=== PATIENT | male | born 1960 | race Caucasian/White ===

== ENCOUNTER 2022-02-07 10:18 | Day surgery (SDC) | payer BC ==
[2022-02-06 16:32] LABS: SARS-CoV-2 Antigen Rapid Res Negative (Negative)
[2022-02-07] MEDS ORDERED: Ringers Lactate 1,000 ML IV ONE (10:37)
[2022-02-07] MEDS ORDERED: CEFAZOLIN 2 GM IN 0.9% NACL 2 GM/100 ML BAG ONE (10:37)
[2022-02-07] MEDS ORDERED: DIAZEPAM 5 MG TABLET ONE (12:03)
[2022-02-07] MEDS ORDERED: CELECOXIB 100 MG CAPSULE ONE (12:03)
[2022-02-07] MEDS ORDERED: ACETAMINOPHEN 500 MG TAB ONE (12:04)
[2022-02-07] MEDS ORDERED: propofoL 200 MG/20 ML VIAL IV ONE (12:24)
[2022-02-07] MEDS ORDERED: MIDAZOLAM HCL 2 MG/2 ML INJ ONE (12:24)
[2022-02-07] MEDS ORDERED: LIDOCAINE 1% MPF 5 ML VIAL ONE (12:24)
[2022-02-07] MEDS ORDERED: FENTANYL CITR 100 MCG/2 ML ONE ×2 (12:24→13:03)
[2022-02-07] MEDS ORDERED: BUPIVACAINE 0.25% PF 30 ML VIAL ONE (12:29)
[2022-02-07] MEDS ORDERED: KETOROLAC 30 MG/ML INJ ONE (13:01)
[2022-02-07] MEDS ORDERED: dexAMETHasone 10 MG/ML VIAL ONE (13:01)
[2022-02-07] MEDS ORDERED: ONDANSETRON 4 MG/2 ML VIAL ONE (13:02)
[2022-02-07] MEDS ORDERED: SODIUM HYPOCHLORITE 0.25% 473 ML ONE (13:22)
--- NOTE | 2022-02-07 13:33 | P.OP ---
Preoperative diagnosis: Upper Back infected sebaceous cyst, buttock cysts x 2 Postoperative diagnosis: Upper Back infected sebaceous cyst, buttock cysts x 2 Primary procedure: Wide local excision of upper back infected sebaceous cyst Secondary procedure: Wide local excision of buttock cysts x 2 Anesthesia: GETA + Local Estimated blood loss: <5cc Specimen: back cyst, buttock cysts - taken together Findings: ~3cm x 2cm back cyst to fascia over muscle, buttock cysts into adipose Complications: None Transferred to: Recovery Room Condition: Good
[2022-02-07] MEDS: MORPHINE 4 MG/ML SYR ONE ×3 (13:51→13:57)
[2022-02-07] MEDS ORDERED: MORPHINE 4 MG/ML SYR ONE (14:14)
[2022-02-07 15:09] VITALS: BP 144/99; TEMP 97.3; O2SAT 98
--- NOTE | 2022-02-07 23:02 | OP ---
Date of Procedure: 02/07/2022 Surgeon: Al Daugherty MD, Preoperative Diagnoses: 1.Upper back infected sebaceous cyst. 2.Buttock cyst x2 on the right buttock. Postoperative Diagnoses: 1.Upper back infected sebaceous cyst. 2.Buttock cyst x2 on the right buttock. Procedures Performed: 1.Wide local excision of upper back infected sebaceous cyst. 2.Wide local excision of buttock cyst as described above x2. Anesthesia: General endotracheal plus local with 0.5% Marcaine with epinephrine. Estimated Blood Loss: 5 cc. Specimens: 1.Back cyst. 2.Buttock cysts taken en bloc together. Findings: 1.Approximately 3 cm x 2 cm back cyst extending to the fascia overlying the muscle. 2.Buttock cysts, each approximately 0.5 cm in size and approximately 0.5 cm apart, taken en bloc. T hey were extending into the adipose tissue. Complications: None. The patient was transferred to recovery room in good condition. Procedure In Detail: After informed consent was obtained, the patient was brought to the operating r oom and prepped and draped in the usual sterile fashion. After adequate anesthesia was achieved, the area of the upper back where a previous incision was made was anesthetized with 0.5% Marcaine and sh arply incised down through adipose tissue and subcutaneous tissue using 15 blade. Electrocautery was used to dissect circumferentially down to encompass the sebaceous cyst with infected material down t o the fascia overlying the muscle. This was sent off for pathologic examination. The area was copio usly irrigated. Hemostasis was achieved with electrocautery. The wound was then packed with Dakin-s oaked Kerlix with sterile dressing over the top. At this point, I turned my attention to the buttock cysts, which were on the right buttock. Both of these were taken en bloc with elliptical incision o f approximately 3 cm x 2 cm, encompassing 2 cysts that were approximately 0.5 cm in size and separate d by 0.5 cm, with 15 blade down to subcutaneous tissues and ultimately following into the adipose tis jose using electrocautery. Ultimately, the tissue was removed. Some sebum was emanating from the top s of these cysts after the cysts were removed. These then were sent off for pathologic examination. The wound was then copiously irrigated and closed with an interrupted 2-0 nylon suture in an interru pted fashion with good approximation of tissues. Sterile dressing was placed over the top. The tory ent tolerated the procedure without evidence of any complication and transferred back in good conditi on. All counts were correct at the end of the case. UNIQUE/COLTON Voice ID: [id number] Report ID: [id number]
== END 2022-02-07 14:45 | disposition home or self-care (01) ==
LOC: OR 10:18
PROVIDERS: ATTEND Surgery
PROC: 0JB70ZZ Excision of Back Subcutaneous Tissue and Fascia, Open Approach (ICD-10-PCS; principal; 2022-02-07 11:45)
DX: L72.0 Epidermal cyst (principal); L72.2 Steatocystoma multiplex; Z20.822 Contact with and (suspected) exposure to COVID-19
CPT/HCPCS: 36415; 88304; 87811; 11403; 11400; J2704; J2250; J3010 ×2; J0690; J7120; J2405; 88305; J1100

== ENCOUNTER 2022-02-09 12:53 | Emergency (ER) | payer BC ==
--- NOTE | 2022-02-09 13:31 | ER ---
Nurse's Notes [facility] Name: Zia Coleman Age: 61 yrs Sex: Male : 1960 Arrival Date: 02/09/2022 Time: 12:54 Bed 5 Private MD: David Flower H Diagnosis: back wound;buttock wound Presentation: 02/09 13:13 Chief complaint: Patient states: Had cysts x 2 removed on Thursday by Dr Daugherty, was ph supposed to have home health come for dressing change but they did ot come, dressings present to R mid back and R buttocks, denies fever or chills. Coronavirus screen: Vaccine status: Patient reports receiving the 2nd dose of the covid vaccine. Ebola Screen: No symptoms or risks identified at this time. Initial Sepsis Screen: Does the patient meet any 2 criteria? No. Patient's initial sepsis screen is negative. Does the patient have a suspected source of infection? No. Patient's initial sepsis screen is negative. Risk Assessment: Do you want to hurt yourself or someone else? Patient reports no desire to harm self or others. Onset of symptoms was February 09, 2022. 13:13 Method Of Arrival: Ambulatory ph 13:13 Acuity: LIZ 4 ph Triage Assessment: 13:16 General: Appears in no apparent distress. Behavior is calm, cooperative, appropriate ph for age, Denies fever, chills. Derm: Skin is healthy with good turgor, Wound noted sacrum and right mid back. Historical: - Allergies: 13:15 Codeine; ph - PMHx: 13:15 Rheumatoid arthritis; ph - PSHx: 13:15 Appendectomy; ph - Immunization history:: Adult Immunizations up to date. - Social history:: Smoking status: Patient/guardian denies using tobacco, the patient reports quitting approximately 25 years ago. Screenin:24 Abuse screen: Denies threats or abuse. Denies injuries from another. Nutritional jh6 screening: No deficits noted. Tuberculosis screening: No symptoms or risk factors identified. Fall Risk None identified. Assessment: 13:23 General: Appears in no apparent distress. Behavior is calm, cooperative. Pain: Denies jh6 pain. Derm: Skin is healthy with good turgor, Wound noted right subscapular area Wound is 2CM POST SURGICAL REMOVAL OF CYST WITH PACKING. 13:26 General: PROVIDER CLEANING AND PACKED WOUND. jh6 Vital Signs: 13:13 BP 146 / 90; Pulse 85; Resp 18; Temp 97.8; Pulse Ox 99% on R/A; Weight 176.9 kg; Height ph 6 ft. 5 in. (195.58 cm); 13:13 Body Mass Index 46.25 (176.90 kg, 195.58 cm) ph ED Course: 12:54 Patient arrived in ED. mr 12:55 David Flower DO is Private Physician. mr 13:09 Joi Ardon PA is PHCP. en 13:09 Randy Dickerson MD is Attending Physician. en 13:15 Triage completed. ph 13:16 Arm band placed on Patient placed in an exam room, on a stretcher. ph 13:22 Nora Snyder, RN is Primary Nurse. jh6 13:24 Bed in low position. Call light in reach. Side rails up X 1. jh6 13:25 Dressings: ABD pad X 1; right subscapular area 4X4s NS IRRIGATION FLUID FOR PACKING. jh6 13:30 Al Daugherty MD is Referral Physician. en 13:38 No provider procedures requiring assistance completed. Patient did not have IV access shah during this emergency room visit. Administered Medications: No medications were administered Medication: 13:26 VIS not applicable for this client. 6 Outcome: 13:31 Discharge ordered by . en 13:38 Discharged to home ambulatory. shah 13:38 Condition: good 13:38 Discharge instructions given to patient. 13:38 Patient left the ED. shah Signatures: Yamilet Watts mr Sheila Rosado, RN RN Nora Snyder, ANANDA RN [facility] Toya Tobias RN RN Joi Ardon PA PA en
--- NOTE | 2022-02-09 13:32 | EDPHYS ---
Physician Documentation [facility] Name: Zia Coleman Age: 61 yrs Sex: Male : 1960 Arrival Date: 02/09/2022 Time: 12:54 Bed 5 Private MD: David Flower H ED Physician Randy Dickerson HPI: 02/09 13:24 This 61 yrs old Male presents to ER via Ambulatory with complaints of Wound Recheck. en 13:24 Patient presents to ED for recheck of: abscess. 61 yo M presents to ED for wound check en and dressing change s/p I\T\D right sided back abscess and buttock abscess by Dr Daugherty. Wound care was not able to see pt 2/2 staffing shortage so pt came in for check and dressing change. No F/C/N/V. No drainage from wounds. Historical: - Allergies: 13:15 Codeine; ph - PMHx: 13:15 Rheumatoid arthritis; ph - PSHx: 13:15 Appendectomy; ph - Immunization history:: Adult Immunizations up to date. - Social history:: Smoking status: Patient/guardian denies using tobacco, the patient reports quitting approximately 25 years ago. ROS: 13:24 Constitutional: Negative for fever, chills, and weight loss. en 13:24 Constitutional: Negative for body aches, chills, fatigue, fever. 13:24 Skin: Positive for back and buttock post-op wounds. Exam: 13:24 Constitutional: This is a well developed, well nourished patient who is awake, alert, en and in no acute distress. 13:24 Constitutional: The patient appears in no acute distress, alert, awake. 13:24 Eyes: Conjunctiva: exudate, injected. 13:24 ENT: Mouth: Lips: normal, Oral mucosa: pink and intact, moist, Gums: Posterior pharynx: Airway: patent. 13:24 Cardiovascular: Rate: normal, Rhythm: regular, Pulses: no pulse deficits are appreciated, Heart sounds: normal, no murmur, no rub, no gallop. 13:24 Respiratory: the patient does not display signs of respiratory distress, Respirations: normal, Breath sounds: are clear throughout, no rales, rhonchi. 13:24 Skin: right upper back with [id number] wound. Dressing removed with healthy granulation tissue in base. No surrounding erythema, induration, or drainage. Right gluteal fold with sutures in place, c/d/i no e/i/f/d. . Vital Signs: 13:13 BP 146 / 90; Pulse 85; Resp 18; Temp 97.8; Pulse Ox 99% on R/A; Weight 176.9 kg; Height ph 6 ft. 5 in. (195.58 cm); 13:13 Body Mass Index 46.25 (176.90 kg, 195.58 cm) ph Procedures: 13:24 wet to dry dressing to right upper back wound with saline and gauze. Wound care en reviewed with pt. MDM: 13:09 Patient medically screened. en 13:24 Differential diagnosis: wound check without infection. Data reviewed: vital signs, en nurses notes. ED course: dressing changed and wound care reviewed. Instructed pt on wet to dry dressings. updated Dr Daugherty who will follow as outpatient. Administered Medications: No medications were administered Disposition: 15:23 Co-signature as Attending Physician, Randy Dickerson MD I agree with the assessment and kdr plan of care. Disposition Summary: 02/09/22 13:31 Discharge Ordered Location: Home en Problem: new en Symptoms: have improved en Condition: Stable en Diagnosis - back wound en - buttock wound en Followup: en - With: Al Daugherty MD - When: 1 - 2 days - Reason: Discharge Instructions: - Discharge Summary Sheet en - Wound Care, Adult en Forms: - Medication Reconciliation Form en - Thank You Letter en - Antibiotic Education en - Prescription Opioid Use en Signatures: Randy Dickerson MD MD [facility] Sheila Rosado RN RN ph Joi Ardon PA PA en
[2022-02-09 13:43] VITALS: BP 146/90; TEMP 97.8; O2SAT 99
== END 2022-02-09 13:38 | disposition home or self-care (01) ==
LOC: ER 12:53
DX: Z48.01 Encounter for change or removal of surgical wound dressing (principal)
CPT/HCPCS: 99281